=== PATIENT | male | born 1960 | race Caucasian/White ===

== ENCOUNTER 2020-10-12 13:14 | Emergency (ER) | payer OTHER, SELFPAY ==
[2020-10-12 13:25] VITALS: BP 120/79; PULSE 78; RESP 16; TEMP 36.3; O2SAT 98; BMI 23.6
[2020-10-12] MEDS: SODIUM CHLORIDE 0.9% 1,000 ML 1000 ML IV (13:54)
[2020-10-12] MEDS: ONDANSETRON 4 MG/2 ML INJ (13:54)
[2020-10-12 14:00] LABS: Add Manual Diff / Slide Review NO; Basophils Absolute Auto 0 /uL (0-100); Basophils Percent Auto 0.3 % (0-2); Eosinophils Absolute Auto 100 /uL (0-450); Eosinophils Percent Auto 0.4 % (2-4); Hematocrit 46.2 % (41-53); Hemoglobin 15.3 g/dL (13.5-17.5); Lymphocytes Absolute Auto 1200 /uL (1100-4500); Lymphocytes Percent Auto 8.5 % (25-40); Mean Corpuscular HGB Conc 33.1 % (30-36); Mean Corpuscular Hemoglobin 29.6 PG (26-34); Mean Corpuscular Volume 89.5 fL (80-100); Monocytes Absolute Auto 600 /uL (0-900); Monocytes Percent Auto 3.9 % (3-14); Neutrophils Absolute Auto 12400 /uL (1500-7000); Neutrophils Percent Auto 86.9 % (50-75); Platelet Count 290 X10^3/uL (150-400); Red Blood Cell Count 5.16 X10^6/uL (4.5-5.9); Red Cell Distribution Width 13.9 % (11.6-14.8); White Blood Cell Count 14.3 X10^3/uL (4.5-11.0)
[2020-10-12 14:03] LABS: Prothrombin Time 10.7 SECONDS (10.1-12.7)
[2020-10-12 14:06] LABS: PTT Partial Thromboplastin Tim 33 SECONDS (26.4-36.2)
[2020-10-12 14:09] LABS: Alanine Aminotransferase 20 IU/L (<50); Albumin 4.4 g/dL (3.5-5.0); Albumin Globulin Ratio 1.1 (1.0-2.8); Alkaline Phosphatase 104 U/L (38-126); Aspartate Aminotransferase 34 IU/L (17-59); BUN Creatinine Ratio 21.9 (6-22); Blood Urea Nitrogen 16 mg/dL (9-20); Calcium 9.8 mg/dL (8.4-10.2); Carbon Dioxide 22 mmol/L (22-32); Chloride 105 mmol/L (98-107); Creatine Kinase 96 U/L (55-170); Estimated Glomerular Filt Rate > 60.0 mL/min (>60); Glucose 149 mg/dL (70-100); Lipase 65 U/L (23-300); Potassium 4.5 mmol/L (3.4-5.1); Sodium 137 mmol/L (137-145); Total Protein 8.4 g/dL (6.3-8.2)
[2020-10-12 14:10] LABS: Lactate (Lactic Acid) 1.7 mmol/L (0.7-2.1)
[2020-10-12 14:11] LABS: HEMOLYSIS 89 (0-50)
[2020-10-12 14:19] VITALS: PULSE 66; O2SAT 98
[2020-10-12 14:21] LABS: Troponin I < 0.012 ng/mL (0.01-0.034)
[2020-10-12 14:25] LABS: Procalcitonin 0.05 ng/mL (<0.5)
--- NOTE | 2020-10-12 14:25 | ED_ITS ---
HPI - Wound/Laceration General Chief Complaint: Wound/Laceration Stated Complaint: Cut Finger off Yesterday, Throwing Up Time Seen by Provider: 10/12/20 13:43 Source: patient Mode of arrival: Ambulatory Limitations: no limitations History of Present Illness HPI narrative: Patient is a 60-year-old male who sustained a injury to finger of his left hand yesterday. He has an appointment with Orthopedics later today. He was seen by his primary doctor and was given antibiotics. He states that today he took a dose of his antibiotics and had episodes of nausea and vomiting. This going on for several hours because he was on a boat in route from the [place] where he lives to here for his appointment. Related Data Home Medications Medication Instructions Recorded Confirmed clindamycin HCl 150 mg PO QID 10/12/20 10/12/20 tramadol 50 mg PO TID PRN 10/12/20 10/12/20 Allergies Allergy/AdvReac Type Severity Reaction Status Date / Time No Known Drug Allergies Allergy Verified 10/12/20 14:04 Review of Systems Constitutional Constitutional: Reports body ache(s) and Reports chills Cardiovascular Cardiovascular: Denies chest pain and Denies dyspnea Respiratory Respiratory: Denies dyspnea Gastrointestinal Gastrointestinal: Reports abdominal pain, Reports nausea and Reports vomiting Musculoskeletal Comments: Injury to fingers of left hand Integumentary/Breasts Skin/Breast: Denies rash Neurologic Neurologic: Reports system reviewed and no additional complaints, except as documented Hematologic/Lymphatic On Anticoagulants: No Allergic/Immunologic Allergic/Immunologic: Reports system reviewed and no additional complaints, except as documented Patient History Medical History Benign non-nodular prostatic hyperplasia with lower urinary tract symptoms (04/16/16) Current smoker (04/16/16) Idiopathic chronic gout of foot without tophus (04/16/16) Mixed hyperlipidemia (04/16/16) Reduced libido (04/16/16) Rotator cuff impingement syndrome of right shoulder (04/16/16) Social History Smoking Status: Unknown if ever smoked Smoking Status: Unknown if ever smoked alcohol intake frequency: a few times a week Substance Use Type: does not use Exam Initial Vital Signs Initial Vital Signs: Vital Signs Temperature 97.3 F L 10/12/20 13:25 Pulse Rate 78 10/12/20 13:25 Respiratory Rate 16 10/12/20 13:25 Blood Pressure 120/79 10/12/20 13:25 Pulse Oximetry 98 10/12/20 13:25 Const General: diaphoretic and ill appearing Limitations: mental status not altered HENTN Head: normal to inspection and normocephalic Resp Effort & Inspection: normal respiratory effort Auscultation: clear to auscultation bilaterally Cardio Rate: regular rate Rhythm: regular rhythm GI Inspection: non-distended Palpation: soft Skin Other: Fingers left hand bandaged Neuro General: patient alert, patient awake and patient oriented x3 Extrem Other: Bandaged fingers of left hand Psych Appearance: grossly normal and well kempt Course Orders Ordered: ED Orders 10/12/20 13:39 Comprehensive Metabolic Panel Stat Lipase Stat Procalcitonin Stat Troponin & CK Cardiac Panel Stat 10/12/20 13:42 EKG-12 Lead Stat RT Consult Eval and Treat Now 10/12/20 13:50 Blood Culture Stat Complete Blood Count AUTO DIFF Stat Lactate (Lactic Acid) Stat Partial Thromboplastin Time Stat Prothrombin Time INR Stat Discontinued Medications Hydromorphone HCl (Hydromorphone 1 Mg Inj) 1 mg IV NOW ONE Stop: 10/12/20 14:27 Last Admin: 10/12/20 14:30 Dose: 1 mg Documented by: ALYSSA Sodium Chloride (Normal Saline 0.9%) 1,000 mls @ 1,000 mls/hr IV BOLUS ONE Stop: 10/12/20 14:41 Last Infusion: 10/12/20 14:48 Dose: 0 mls/hr Documented by: Admin: 10/12/20 13:54 Dose: 1,000 mls/hr Documented by: ALYSSA Vital Signs Vital signs: Vital Signs - 8 hr 10/12/20 14:19 10/12/20 14:30 10/12/20 14:33 Pulse Rate 66 69 80 Respiratory Rate 16 Blood Pressure Pulse Oximetry 98 98 97 10/12/20 14:34 Pulse Rate Respiratory Rate Blood Pressure 118/62 Pulse Oximetry MDM - Wound/Laceration Lab Data Attestation: I reviewed the patient's lab results. Result diagrams: 10/12/20 13:50 10/12/20 13:39 Labs: Lab Results 0510/12/20 10/12/20 Range/Units 13:39 13:39 13:50 WBC 14.3 H (4.5-11.0) X10^3/uL RBC 5.16 (4.5-5.9) X10^6/uL Hgb 15.3 (13.5-17.5) g/dL Hct 46.2 (41-53) % MCV 89.5 (80-100) fL MCH 29.6 (26-34) PG MCHC 33.1 (30-36) % RDW 13.9 (11.6-14.8) % Plt Count 290 (150-400) X10^3/uL Neut % (Auto) 86.9 H (50-75) % Lymph % (Auto) 8.5 L (25-40) % [place] % (Auto) 3.9 (3-14) % Eos % (Auto) 0.4 L (2-4) % Baso % (Auto) 0.3 (0-2) % Neut # (Auto) 47128 H (2239-7536) /uL Lymph # (Auto) 1200 (8895-1318) /uL [place] # (Auto) 600 (0-900) /uL Eos # (Auto) 100 (0-450) /uL Baso # (Auto) 0 (0-100) /uL PT (10.1-12.7) SECONDS INR (0.9-1.3) APTT (26.4-36.2) SECONDS Sodium 137 (137-145) mmol/L Potassium 4.5 (3.4-5.1) mmol/L Chloride 105 (98-107) mmol/L Carbon Dioxide 22 (22-32) mmol/L BUN 16 (9-20) mg/dL Creatinine 0.73 (0.66-1.25) mg/dL Estimated GFR > 60.0 (>60) mL/min BUN/Creatinine Ratio 21.9 (6-22) Glucose 149 H (70-100) mg/dL Lactate (0.7-2.1) mmol/L Calcium 9.8 (8.4-10.2) mg/dL Total Bilirubin 1.0 (0.2-1.3) mg/dL AST 34 (17-59) IU/L ALT 20 (<50) IU/L Alkaline Phosphatase 104 (38-126) U/L Total Creatine Kinase 96 (55-170) U/L CK-MB (CK-2) TNP CK-MB (CK-2) Rel Index TNP Troponin I < 0.012 (0.01-0.034) ng/mL Total Protein 8.4 H (6.3-8.2) g/dL Albumin 4.4 (3.5-5.0) g/dL Globulin 4.0 (1.7-4.1) g/dL Albumin/Globulin Ratio 1.1 (1.0-2.8) Lipase 65 (23-300) U/L Procalcitonin 0.05 (<0.5) ng/mL 10/12/20 10/12/20 Range/Units 13:50 13:50 WBC (4.5-11.0) X10^3/uL RBC (4.5-5.9) X10^6/uL Hgb (13.5-17.5) g/dL Hct (41-53) % MCV (80-100) fL MCH (26-34) PG MCHC (30-36) % RDW (11.6-14.8) % Plt Count (150-400) X10^3/uL Neut % (Auto) (50-75) % Lymph % (Auto) (25-40) % [place] % (Auto) (3-14) % Eos % (Auto) (2-4) % Baso % (Auto) (0-2) % Neut # (Auto) (4542-4709) /uL Lymph # (Auto) (1302-8794) /uL [place] # (Auto) (0-900) /uL Eos # (Auto) (0-450) /uL Baso # (Auto) (0-100) /uL PT 10.7 (10.1-12.7) SECONDS INR 1.0 (0.9-1.3) APTT 33 (26.4-36.2) SECONDS Sodium (137-145) mmol/L Potassium (3.4-5.1) mmol/L Chloride (98-107) mmol/L Carbon Dioxide (22-32) mmol/L BUN (9-20) mg/dL Creatinine (0.66-1.25) mg/dL Estimated GFR (>60) mL/min BUN/Creatinine Ratio (6-22) Glucose (70-100) mg/dL Lactate 1.7 (0.7-2.1) mmol/L Calcium (8.4-10.2) mg/dL Total Bilirubin (0.2-1.3) mg/dL AST (17-59) IU/L ALT (<50) IU/L Alkaline Phosphatase (38-126) U/L Total Creatine Kinase (55-170) U/L CK-MB (CK-2) CK-MB (CK-2) Rel Index Troponin I (0.01-0.034) ng/mL Total Protein (6.3-8.2) g/dL Albumin (3.5-5.0) g/dL Globulin (1.7-4.1) g/dL Albumin/Globulin Ratio (1.0-2.8) Lipase (23-300) U/L Procalcitonin (<0.5) ng/mL MDM Narrative Medical decision making narrative: Upon arrival patient did look very poorly. He was diaphoretic. Was vomiting. Was given Zofran and he stated that he felt much better afterwards. I suspect that his symptoms were related to the antibiotics that he took earlier today. I have lower suspicion this is an anaphylactic reaction and more suspicion that he took the pills along with the pain medication on an empty stomach causing him to have no vomiting. He has a leukocytosis but I suspect this is stress reaction from all the vomiting. Plan will be is to discharge him so that he can make his orthopedic appointment. According to what he states that he needs to see the Orthopedics in order to get some tendons repaired. He was given return precautions and follow-up instructions. He expressed understanding and agreement. Discharge Plan Departure Patient Disposition: Home Clinical Impression: Nausea and vomiting Instructions: Nausea and Vomiting-Adult Activity Restrictions/Additional Instructions: I suspect that the symptoms that brought you to the emergency department today is a side effect of the clindamycin. I recommend that you keep your appointment with Orthopedics and discuss with them any antibiotic changes. Return to the emergency department for any new or worsening symptoms. Prescriptions: No Action clindamycin HCl 150 mg capsule 150 mg PO QID RF: 0 tramadol 50 mg tablet 50 mg PO TID PRN (Reason: Pain (Scale Score 4-6)) RF: 0 Referrals: Aureliano Duff MD [Primary Care Provider] -
[2020-10-12 14:30] VITALS: PULSE 69; O2SAT 98
[2020-10-12] MEDS: HYDROMORPHONE 1 MG INJ IV (14:30)
[2020-10-12 14:33] VITALS: PULSE 80; RESP 16; O2SAT 97
[2020-10-12 14:34] VITALS: BP 118/62
== END 2020-10-12 14:51 | disposition home or self-care (01) ==
PROVIDERS: Emergency Provider Emergency Medicine; PCP Family Medicine
DX: R11.2 Nausea with vomiting, unspecified (principal); R10.9 Unspecified abdominal pain
CPT/HCPCS: 36415; 80053; 82550; 83605; 83690; 84145; 84484; 85025; 85610; 85730; 87040; 93005; 96361; 96374; 96375; 99284; J1170; J2405

== ENCOUNTER → 2021-03-05 12:18 | Outpatient (CLI) | payer OTHER, SELFPAY | PROVIDERS: PCP Family Medicine; Referring Provider Orthopaedic Surgery; Visit Provider Orthopaedic Surgery | DX: S49.91XA Unspecified injury of right shoulder and upper arm, initial encounter (principal); Z53.20 Procedure and treatment not carried out because of patient's decision for unspecified reasons ==